=== PATIENT | female | born 1965 | race Caucasian/White ===

== ENCOUNTER 2020-12-08 09:37 | Outpatient (CLI) | payer OTHER, SELFPAY ==
--- NOTE | ~2020-12-08 | MM_ITS ---
EXAMINATION: MM scrn henrique implant BI w alexandru HISTORY: Screening mammogram TECHNIQUE: Craniocaudal and mediolateral oblique 3-D tomosynthesis images with implant displacement a nd synthetic 2-D images were generated. Craniocaudal and mediolateral oblique views of the breasts wi thout implant displacement were obtained using full field digital mammography. CAD analysis was submi tted and interpreted. COMPARISON: Comparison to multiple prior studies sequentially, with oldest reviewed study dated 12/11. BREAST PARENCHYMAL COMPOSITION: There are scattered areas of fibroglandular density. FINDINGS: There are subpectoral saline implants. There is no evidence of suspicious mass, calcificati on, or architectural distortion to suggest malignancy in either breast. There has been no suspicious interval change. IMPRESSION: 1. No mammographic evidence of malignancy. 2. Recommend routine screening mammography in one year. BI-RADS Category 1: Negative Reviewed, dictated and finalized at location A. 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
== END 2020-12-08 09:38 | disposition home or self-care (01) ==
LOC: ANHIMG 09:40
PROVIDERS: PCP Family Medicine; Visit Provider Family Medicine
DX: Z12.31 Encounter for screening mammogram for malignant neoplasm of breast (principal)
CPT/HCPCS: 77063; 77067

== ENCOUNTER → 2021-08-21 11:44 | Outpatient (CLI) | payer OTHER, SELFPAY ==
--- NOTE | ~2021-08-21 | XR_ITS ---
XR abdomen obstructive series DATE: 08/21/2021 13:22 INDICATION: Abdominal pain TECHNIQUE: Supine and standing AP views COMPARISON: None FINDINGS: Patchy interstitial infiltrates are suggested in both lower lung zones. Heart size appears enlarged. No intraperitoneal free air is evident. There is no evidence of bowel obstruction. The psoas shadows are intact. No visceromegaly or significant abnormal calcification is noted. Included skeletal structures are unremarkable. IMPRESSION: Nonspecific abdomen Patchy infiltrates are suggested in the lower lung zones Cardiomegaly Reviewed, dictated and finalized at Location A. Reviewed, dictated and finalized at location B.
== END ==
PROVIDERS: PCP Family Medicine; Visit Provider Family Medicine
DX: R10.9 Unspecified abdominal pain (principal); I51.7 Cardiomegaly
CPT/HCPCS: 74019

== ENCOUNTER 2022-04-17 13:02 | Outpatient (CLI) | payer OTHER, SELFPAY ==
--- NOTE | ~2022-04-17 | CT_ITS ---
EXAMINATION: CT abdomen pelvis wo con DATE: 04/17/2022 13:23 INDICATION: ABD PAIN TECHNIQUE: Computed tomography (CT) of the abdomen and pelvis was performed without intravenous contr ast. Automated exposure control and iterative reconstruction technique were employed. The dose-length product was 269.52 mGy-cm. COMPARISON: None FINDINGS: Lower thorax: Dependent atelectasis. Left basilar scar/atelectasis. Breast augmentation. Liver: Normal. Biliary/Gallbladder: Gallbladder is normal. No bile duct dilation. Pancreas: No mass or duct dilation. Spleen: Normal. Adrenals:No mass. Kidneys: No mass, stone, or hydronephrosis. GI tract: No small or large bowel dilation. Normal appendix. Mesentery/Peritoneum: No ascites, mass, or free air. Retroperitoneum: No mass. Pelvis: Pelvic organs are within normal limits. Soft Tissues: Soft tissues and body wall unremarkable. Bones: No acute osseous finding. Severe degenerative disc disease at L4-5. IMPRESSION: No acute abdominopelvic process. Reviewed, dictated and finalized at location K.
== END 2022-04-17 13:03 | disposition home or self-care (01) ==
PROVIDERS: PCP Family Medicine; Visit Provider Nurse Practitioner
DX: R10.9 Unspecified abdominal pain (principal); R19.4 Change in bowel habit
CPT/HCPCS: 74176

== ENCOUNTER 2022-06-06 00:30 | Day surgery (SDC) | payer OTHER, SELFPAY ==
[2022-05-23 14:25] VITALS: BMI 21.5
--- NOTE | 2022-06-05 14:48 | PM.HPGS ---
History of Present Illness History of Present Illness Consent: Risks, benefits, and alternatives have been discussed and questions answered. Patient agrees to proceed with procedure. Chief complaint: left side abdomen pain, change in bowel habits Narrative: Janiya Downey is a 56 year old female Was had as significant change in her bowel habits. She was noticing pain in the left upper and left lower quadrants with some bloating. Then she got to the point where she could not have a bowel movement. Her stools were hard. She took a complete colonoscopy prep on her own with no results. X-rays were done that showed large amount of stool in her colon. She finally used enemas and milk of magnesia and has gotten her bowels moving. She is currently taking MiraLax every day. There has been no blood in her stools. She did lose about 15 lb for a while but gained most of this back. her last colonoscopy was 5 years ago. Review of Systems Review of Systems: All systems reviewed & are unremarkable except as noted in HPI and below PMFSH Past Medical History Medical History Generalized anxiety disorder Surgical History Surgical History H/O laparoscopy History of breast augmentation History of hysterectomy Family History Family History Father Hypertension Family history of cardiovascular disease Malignant neoplasm of prostate Family history of coronary artery disease Social History Social History Smoking status: Never smoker Second hand tobacco smoke exposure: No Alcohol intake: never Drinks per week: 2 Substance use: never Substance use type: does not use Living arrangements: with family Gender identity (if verbalized by the patient): Female Spiritual care concerns: No Agree to blood products: Yes Meds Home Medications and Allergies Home Medications Medication Instructions Recorded Confirmed Type levothyroxine 75 mcg tablet See Rx Instructions .Route 11/24/21 05/23/22 Rx .COMPLEX #90 tabs estradiol 1 mg tablet 1 mg PO DAILY #90 tabs 02/22/22 05/23/22 Rx Klonopin 1 mg tablet (clonazepam) 1 mg PO TID #90 tabs 05/16/22 05/23/22 Rx Allergies Allergy/AdvReac Type Severity Reaction Status Date / Time cefuroxime Allergy Unknown Nausea Verified 06/06/22 08:44 Penicillins Allergy Unknown rash Verified 06/06/22 08:44 phenytoin Allergy Unknown rash Verified 06/06/22 08:44 Exam Resp: Auscultation: clear to auscultation bilaterally Cardio: Rate: regular rate Rhythm: regular rhythm GI: GI Palp: Yes Soft to palpation and No Tenderness to palpation present (GI) Assessment and Plan Assessment and plan (1) Change in bowel habits: Code(s): R19.4 - Change in bowel habit Status: Acute Assessment and Plan: Colonoscopy with possible biopsy or polypectomy or cautery or injection of substances.
[2022-06-06 08:47] VITALS: BP 109/70; PULSE 102; RESP 20; TEMP 37.1; O2SAT 100
[2022-06-06] MEDS: LACTATED RINGERS 1,000 ML 150 ML IV CONT (08:59)
--- NOTE | 2022-06-06 09:05 | WPDANESEPPF ---
Anes - Initial Pre Proc Eval Procedure: Operation Date: 06/06/22 09:45 Proposed Procedures p Colonoscopy - Mac Bruce MD Date/Time: 06/06/22 09:05 Surgeon: Mac Bruce MD Pre Op Diagnosis: left side abdomen pain, change in bowel habits Patient Data Age: 56 Gender: F Height: 1.63 m Weight: 57 kg Last Vital Signs Temp 37.1 C 06/06/22 08:47 Pulse 102 H 06/06/22 08:47 Resp 20 06/06/22 08:47 BP 109/70 06/06/22 08:47 Pulse Ox 100 06/06/22 08:47 O2 Del Method Room Air 06/06/22 08:47 Allergies Allergy/AdvReac Type Severity Reaction Status Date / Time cefuroxime Allergy Unknown Nausea Verified 06/06/22 08:44 Penicillins Allergy Unknown rash Verified 06/06/22 08:44 phenytoin Allergy Unknown rash Verified 06/06/22 08:44 Home Medications Medication Instructions Recorded Confirmed Type levothyroxine 75 mcg tablet See Rx Instructions .Route 11/24/21 05/23/22 Rx .COMPLEX #90 tabs estradiol 1 mg tablet 1 mg PO DAILY #90 tabs 02/22/22 05/23/22 Rx Klonopin 1 mg tablet (clonazepam) 1 mg PO TID #90 tabs 05/16/22 05/23/22 Rx Patient hx anesthesia problems: none Family hx anesthesia problems: none Results Review: All pre-operative results and documents have been reviewed as part of the pre-operative evaluation. [facility] Past Medical History Medical History Generalized anxiety disorder Surgical History Surgical History H/O laparoscopy History of breast augmentation History of hysterectomy Family History Family History Father Hypertension Family history of cardiovascular disease Malignant neoplasm of prostate Family history of coronary artery disease Social History Social History Smoking status: Never smoker Second hand tobacco smoke exposure: No Alcohol intake: never Drinks per week: 2 Substance use: never Substance use type: does not use Living arrangements: with family Gender identity (if verbalized by the patient): Female Spiritual care concerns: No Agree to blood products: Yes Anes - Eval Final PreProcedure Day of Procedure 06/06/22 09:05 Patient weight: normal Heart: regular rate and rhythm Lungs: clear to auscultation and normal air movement Airway: Mallampati scale class II Neurological: alert and oriented Last oral intake: >/= 8 hours ASA classification: II Emergent: no Anesthetic plan: proceed Anesthesia type and monitoring: general GIVS Results Review: All pre-operative results and documents have been reviewed as part of the pre-operative evaluation. Informed Consent: The patient's anesthetic plan and its attendant risks and benefits were discussed with the patient/family/POA. Questions were solicited and answers provided to the satisfaction of the patient/family/POA.
[2022-06-06 10:05] VITALS: BP 90/58; PULSE 79; RESP 22; O2SAT 100
[2022-06-06 10:15] VITALS: BP 109/79; PULSE 65; RESP 23; O2SAT 100
[2022-06-06 10:25] VITALS: BP 96/67; PULSE 66; RESP 21; O2SAT 99
== END 2022-06-06 10:34 | disposition home or self-care (01) ==
PROVIDERS: PCP Family Medicine; Visit Provider Internal Medicine Gastroenterology
PROC: 0DJD8ZZ Inspection of Lower Intestinal Tract, Via Natural or Artificial Opening Endoscopic (ICD-10-PCS; CPT 45378; principal; 2022-06-06 09:45)
DX: K63.5 Polyp of colon (principal); K63.89 Other specified diseases of intestine; R10.9 Unspecified abdominal pain; E03.9 Hypothyroidism, unspecified; R19.4 Change in bowel habit; F41.1 Generalized anxiety disorder
CPT/HCPCS: 45380; 45385; 88305; J2704; J7120

== ENCOUNTER 2023-07-10 10:02 | Outpatient (CLI) | payer OTHER, SELFPAY ==
--- NOTE | ~2023-07-10 | DEXA_ITS ---
Bone Density Report Name: FERNANDO SOLANO Age: 57 Sex: Female Ethnicity: White Date of : 1965 Indication: osteopenia; height loss; seizure disorder; hysterectomy; Referring Provider: JUAN TUCKER Study: Bone densitometry was performed. Exam Date: July 10, 2023 Accession number: [id number] Bone Density: Region BMD T-score Z-score Classification AP Spine(L1-L4) 0.907 -1.3 0.1 Osteopenia Femoral Neck (Left) 0.593 -2.3 -1.1 Osteopenia Total Hip (Left) 0.691 -2.1 -1.2 Osteopenia Femoral Neck (Right) 0.633 -1.9 -0.7 Osteopenia Total Hip (Right) 0.726 -1.8 -0.9 Osteopenia Total Hip Mean 0.709 -2.0 -1.1 Osteopenia World Health Organization criteria for BMD impression classify patients as: Normal (T-score at or above -1.0), Osteopenia (T-score between -1.0 and -2.5), or Osteoporosis (T-score at or below -2.5). 10-year Fracture Risk(1): Major Osteoporotic Fracture 9.2% Hip Fracture 1.4% Reported Risk Factors: [place] (), Neck BMD=0.593, BMI=21.5 (1) FRAX(R) Version 3.08. Fracture probability calculated for an untreated patient. Fracture probability may be lower if the patient has received treatment. Previous Exams: Region Exam Age BMD T-score BMD Change BMD Change Date g/cm2 vs Baseline vs Previous AP Spine (L1-L4) 07/10/2023 57 0.907 -1.3 -0.078 (-7.9%) -0.034 (-3.6%) 06/02/2015 49 0.940 -1.0 -0.044 (-4.5%) -0.044 (-4.5%) 12/11/2012 47 0.985 -0.6 Total Hip(Left) 07/10/2023 57 0.691 -2.1 -0.107 (-13.4% -0.054 (-7.3%) 06/02/2015 49 0.746 -1.6 -0.053 (-6.6%) -0.053 (-6.6%) 12/11/2012 47 0.799 -1.2 Total Hip(Right) 07/10/2023 57 0.726 -1.8 -0.081 (-10.0% -0.062 (-7.8%) 06/02/2015 49 0.788 -1.3 -0.019 (-2.4%) -0.019 (-2.4%) 12/11/2012 47 0.807 -1.1 *Denotes significance at 95% confidence level, LSC for AP Spine = 0.022 g/cm2, LSC for Total Hip = 0.027 g/cm2 # Denotes dissimilar scan types or analysis methods Clinical Information Provided by Patient: Has the following medical conditions: Any Seizure Disorders, Hysterectomy Patient maximum height was 65 Menopause Age: 35 Drinks caffeinated beverages Onset of menses at age 13 Number of children 2 Impression: The patient has low bone mass, based on the Left Femoral Neck T-score. The patient has an estimated ten-year risk of hip fracture of 1.4% and an estimated ten-year risk of major fracture of 9.2%, based
--- NOTE | ~2023-07-10 | MM_ITS ---
EXAMINATION: MM scrn henrique implant BI w alexandru HISTORY: Screening mammogram TECHNIQUE: Craniocaudal and mediolateral oblique 3-D tomosynthesis images with implant displacement a nd synthetic 2-D images were generated. Craniocaudal and mediolateral oblique views of the breasts wi thout implant displacement were obtained using full field digital mammography. CAD analysis was submi tted and interpreted. COMPARISON: 12/08/2020, 05/31/2017, 06/02/2015 BREAST PARENCHYMAL COMPOSITION: There are scattered areas of fibroglandular density. FINDINGS: There is no evidence of suspicious mass, calcification, or architectural distortion to sugg est malignancy in either breast. There has been no suspicious interval change. IMPRESSION: 1. No mammographic evidence of malignancy. 2. Recommend routine screening mammography in one year. BI-RADS Category 1: Negative Reviewed, dictated and finalized at location A.
== END 2023-07-10 10:03 | disposition home or self-care (01) ==
LOC: ANHIMG 10:03
PROVIDERS: PCP Family Medicine; Visit Provider Family Medicine
DX: Z12.31 Encounter for screening mammogram for malignant neoplasm of breast (principal); Z78.0 Asymptomatic menopausal state; M85.88 Other specified disorders of bone density and structure, other site; M85.852 Other specified disorders of bone density and structure, left thigh; M85.851 Other specified disorders of bone density and structure, right thigh
CPT/HCPCS: 77063; 77067; 77080

== ENCOUNTER 2025-06-28 14:33 | Outpatient (CLI) | payer OTHER, SELFPAY ==
--- NOTE | ~2025-06-28 | MM_ITS ---
EXAMINATION: MM scrn henrique implant BI w alexandru HISTORY: Screening mammogram TECHNIQUE: Craniocaudal and mediolateral oblique 3-D tomosynthesis images with implant displacement a nd synthetic 2-D images were generated. Craniocaudal and mediolateral oblique views of the breasts wi thout implant displacement were obtained using full field digital mammography. CAD analysis was submi tted and interpreted. COMPARISON: 07/10/2023 BREAST PARENCHYMAL COMPOSITION: There are scattered areas of fibroglandular density. FINDINGS: There is no evidence of suspicious mass, calcification, or architectural distortion to sugg est malignancy in either breast. There has been no suspicious interval change. IMPRESSION: No mammographic evidence of malignancy. Recommend routine screening mammography in one year. BI-RADS Category 1: Negative Reviewed, dictated and finalized at [facility].
--- OUTSIDE RECORDS SUMMARY | 2025-06-28 15:37 | XMS_ITS | Encounter Summary ---
Author Organization [facility] Address [address] [place] [address] Care Team Providers Care Ripening Room Operator Name Role Phone Joseph Perera MD Primary Care Provider +1- [phone] Encounter Details Date Type Department Care Team (Late st Contact Info) Description 05/29/1999 Outpatient Historical [facility] WORKFORCE PLANNER - Medical [facility] [id number] [place] [address] Ananth Hernandez MD [id number] [place] [address] Social History Tobacco Use Types Packs/Day Years Used Date Smoking Tobacco: Never Assessed Comments Unknown Sex and Gender Information Value Date Recorded Sex Assigned at Not on file Legal Sex Female 4:34 AM LEGISLATIVE ASSISTANT Gender Identity Not on file Sexual Orientation Not on file documented as of this encounter Plan of Treatment Not on file documented as of this encounter Visit Diagnoses Not on filedocumented in this encounter Care Teams Ripening Room Operator Relationship Specialty Start Date End Date Joseph Perera MD [address] [place] [address] [address] [place] [address] PCP - General 02/16/03 documented as of this encounter
--- OUTSIDE RECORDS SUMMARY | 2025-06-28 15:37 | XMS_ITS | Encounter Summary ---
Author Organization [facility] Address [address] [place] [address] Care Team Providers Care Wind Turbine Service Technician Name Role Phone Joseph Perera MD Primary Care Provider +1- [phone] Encounter Details Date Type Department Care Team (Late st Contact Info) Description 08/17/2002 Outpatient Historical [facility] INDUSTRIAL RELATIONS DIRECTOR - [address] [place] [address] Ananth Hernandez MD [address] [facility] [address] [address] Social History Tobacco Use Types Packs/Day Years Used Date Smoking Tobacco: Never Assessed Comments Unknown Sex and Gender Information Value Date Recorded Sex Assigned at Not on file Legal Sex Female 4:34 AM WHARF TENDER Gender Identity Not on file Sexual Orientation Not on file documented as of this encounter Plan of Treatment Not on file documented as of this encounter Visit Diagnoses Not on filedocumented in this encounter Care Teams Wind Turbine Service Technician Relationship Specialty Start Date End Date Joseph Perera MD [address] [place] [address] [address] [place] [address] PCP - General 02/16/03 documented as of this encounter
--- OUTSIDE RECORDS SUMMARY | 2025-06-28 15:37 | XMS_ITS | Clinical Summary ---
Author Organization [facility] [address] [facility] Address [address] [place] [address] Care Team Providers Care Supervisor Heavy Equipment Name Role Phone Joseph Perera MD Primary Care Provider +1 -[phone] Allergies Active Allergy Reactions Criticality Noted Date Comments Phenytoin Rash Medium 06/07/2021 Penicillins Rash Medium 06/07/2021 Medications Prolensa 0.07 % drops 04/24/2021 Active KlonoPIN 1 mg tablet 03/22/2021 Active estradioL (ESTRACE) 1 mg tablet 05/29/2021 Active Synthroid 75 mcg tablet 05/29/2021 Active Active Problems No known active problems Surgical History Surgery Date Site/Laterality Comments EYE SURGERY 05/19/2021 Left Refractive lens replacement HYSTERECTOMY TUMOR REMOVAL Medical History Medical History Date Comments Thyroid disease Epilepsy (HCC) Endometriosis Family History Medical History Relation Name Comments Colon cancer Father Relation Name Status Comments Father Social History Tobacco Use Types Packs/Day Years Used Date Smoking Tobacco: Never Smokeless Tobacco: Never Personal Safety Answer Date Recorded Getting School Help Needed Not on file 01/23 Comments Unknown Sex and Gender Information Value Date Recorded Sex Assigned at Not on file Legal Sex Female 5:29 PM GRANULIZING MACHINE OPERATOR Gender Identity Not on file Sexual Orientation Not on file Obstetrics History Last Filed Vital Signs Vital Sign Reading Time Taken Comments Blood Pressure 108/78 06/07/2021 5:21 PM CDT Pulse 52 06/07/2021 5:21 PM CDT Temperature 36.7 C (98.1 F) 06/07/2021 5:21 PM CDT Respiratory Rate 15 06/07/2021 5:21 PM CDT Oxygen Saturation 98% 06/07/2021 5:21 PM CDT Inhaled Oxygen Concentration - - Weight 58.2 kg (128 lb 3.2 oz) 06/07/2021 5:21 P M CDT Height 162.6 cm (5' 4) 06/07/2021 5:21 PM CDT Body Mass Index 22.01 06/07/2021 5:21 PM CDT Plan of Treatment Not on file Insurance [facility] H[facility]/PPO Address: [facility] [id number] [place] [id number] Care Teams Supervisor Heavy Equipment Relationship Specialty Start Date End Date Joseph Perera MD PCP - General Family Medicine 06/07/21
--- OUTSIDE RECORDS SUMMARY | 2025-06-28 15:37 | XMS_ITS | Encounter Summary ---
Author Organization [facility] Address [address] [place] [address] Care Team Providers Care Bumper Operator Name Role Phone Joseph Perera MD Primary Care Provider +1- [phone] Encounter Details Date Type Department Care Team (Late st Contact Info) Description 05/19/2001 Outpatient Historical [facility] GAME AND FISH PROTECTOR - Medical [place] [facility] [address] [facility] [address] [address] Ángel Montgomery MD [address] [place] [address] Social History Tobacco Use Types Packs/Day Years Used Date Smoking Tobacco: Never Assessed Comments Unknown Sex and Gender Information Value Date Recorded Sex Assigned at Not on file Legal Sex Female 4:34 AM ASSISTANT BRANCH OPERATIONS MANAGER Gender Identity Not on file Sexual Orientation Not on file documented as of this encounter Plan of Treatment Not on file documented as of this encounter Visit Diagnoses Not on filedocumented in this encounter Care Teams Bumper Operator Relationship Specialty Start Date End Date Joseph Perera MD [address] [facility] [address] [place] [address] PCP - General 02/16/03 documented as of this encounter
--- OUTSIDE RECORDS SUMMARY | 2025-06-28 15:37 | XMS_ITS | Encounter Summary ---
Author Organization [facility] Address [address] [place] [address] Care Team Providers Care End Lathe Operator Name Role Phone Joseph Perera MD Primary Care Provider +1- [phone] Encounter Details Date Type Department Care Team (Late st Contact Info) Description 07/29/2000 Outpatient Historical [facility] MANAGER QA - Medical [facility] [id number] [place] [address] Ananth Hernandez MD [id number] [place] [address] Social History Tobacco Use Types Packs/Day Years Used Date Smoking Tobacco: Never Assessed Comments Unknown Sex and Gender Information Value Date Recorded Sex Assigned at Not on file Legal Sex Female 4:34 AM FRONT DESK PERSON Gender Identity Not on file Sexual Orientation Not on file documented as of this encounter Plan of Treatment Not on file documented as of this encounter Visit Diagnoses Not on filedocumented in this encounter Care Teams End Lathe Operator Relationship Specialty Start Date End Date Joseph Perera MD [address] [place] [address] [address] [place] [address] PCP - General 02/16/03 documented as of this encounter
--- OUTSIDE RECORDS SUMMARY | 2025-06-28 15:37 | XMS_ITS | Encounter Summary ---
Author Organization [facility] Address [address] [place] [address] Care Team Providers Care Rail Bonder Name Role Phone Joseph Perera MD Primary Care Provider +1- [phone] Encounter Details Date Type Department Care Team (Late st Contact Info) Description 06/26/1999 Outpatient Historical [facility] APARTMENT MAINTENANCE MANAGER - Medical [facility] [id number] [place] [address] Ananth Hernandez MD [id number] [place] [address] Social History Tobacco Use Types Packs/Day Years Used Date Smoking Tobacco: Never Assessed Comments Unknown Sex and Gender Information Value Date Recorded Sex Assigned at Not on file Legal Sex Female 4:34 AM CRYSTAL GROWER Gender Identity Not on file Sexual Orientation Not on file documented as of this encounter Plan of Treatment Not on file documented as of this encounter Visit Diagnoses Not on filedocumented in this encounter Care Teams Rail Bonder Relationship Specialty Start Date End Date Joseph Perera MD [address] [place] [address] [address] [place] [address] PCP - General 02/16/03 documented as of this encounter
--- OUTSIDE RECORDS SUMMARY | 2025-06-28 15:37 | XMS_ITS | Encounter Summary ---
Author Organization [facility] Address [address] [place] [address] Care Team Providers Care Lube Man Name Role Phone Joseph Perera MD Primary Care Provider +1- [phone] Encounter Details Date Type Department Care Team (Late st Contact Info) Description 07/21/1999 Outpatient Historical [facility] LINING STUFFER - Medical [facility] [id number] [place] [address] Ananth Hernandez MD [id number] [place] [address] Social History Tobacco Use Types Packs/Day Years Used Date Smoking Tobacco: Never Assessed Comments Unknown Sex and Gender Information Value Date Recorded Sex Assigned at Not on file Legal Sex Female 4:34 AM NET APPLICATIONS DEVELOPER Gender Identity Not on file Sexual Orientation Not on file documented as of this encounter Plan of Treatment Not on file documented as of this encounter Visit Diagnoses Not on filedocumented in this encounter Care Teams Lube Man Relationship Specialty Start Date End Date Joseph Perera MD [address] [place] [address] [address] [place] [address] PCP - General 02/16/03 documented as of this encounter
--- OUTSIDE RECORDS SUMMARY | 2025-06-28 15:37 | XMS_ITS | Encounter Summary ---
Author Organization [facility] Address [address] [place] [address] Care Team Providers Care Inside Upholsterer Name Role Phone Joseph Perera MD Primary Care Provider +1- [phone] Encounter Details Date Type Department Care Team (Late st Contact Info) Description 04/16/2002 Outpatient Historical [facility] LINING PARTS SEWER - Medical [place] [facility] [address] [facility] [address] [address] Ángel Montgomery MD [address] [place] [address] Social History Tobacco Use Types Packs/Day Years Used Date Smoking Tobacco: Never Assessed Comments Unknown Sex and Gender Information Value Date Recorded Sex Assigned at Not on file Legal Sex Female 4:34 AM SUPERINTENDENT SERVICE Gender Identity Not on file Sexual Orientation Not on file documented as of this encounter Plan of Treatment Not on file documented as of this encounter Visit Diagnoses Not on filedocumented in this encounter Care Teams Inside Upholsterer Relationship Specialty Start Date End Date Joesph Perera MD [facility] [address] [place] [address] PCP - General 02/16/03 documented as of this encounter
--- OUTSIDE RECORDS SUMMARY | 2025-06-28 15:37 | XMS_ITS | Encounter Summary ---
Author Organization [facility] Address [address] [place] [address] Care Team Providers Care Lehr Attendant Name Role Phone Joseph Perera MD Primary Care Provider +1- [phone] Encounter Details Date Type Department Care Team (Late st Contact Info) Description 07/24/1999 Outpatient Historical [facility] CHEST PAINTING AND SEALING SUPERVISOR - Medical [facility] [id number] [place] [address] Ananth Hernandez MD [id number] [place] [address] Social History Tobacco Use Types Packs/Day Years Used Date Smoking Tobacco: Never Assessed Comments Unknown Sex and Gender Information Value Date Recorded Sex Assigned at Not on file Legal Sex Female 4:34 AM TRACE CLERK Gender Identity Not on file Sexual Orientation Not on file documented as of this encounter Plan of Treatment Not on file documented as of this encounter Visit Diagnoses Not on filedocumented in this encounter Care Teams Lehr Attendant Relationship Specialty Start Date End Date Joseph Perera MD [address] [place] [address] [address] [place] [address] PCP - General 02/16/03 documented as of this encounter
--- OUTSIDE RECORDS SUMMARY | 2025-06-28 15:37 | XMS_ITS | Encounter Summary ---
Author Organization [facility] Address [address] [place] [address] Care Team Providers Care Discharge Coordinator Name Role Phone Joseph Perera MD Primary Care Provider +1- [phone] Encounter Details Date Type Department Care Team (Late st Contact Info) Description 08/13/2001 Outpatient Historical [facility] FARM TECHNICIAN - Medical [facility] [id number] [place] [address] Ananth Hernandez MD [id number] [place] [address] Social History Tobacco Use Types Packs/Day Years Used Date Smoking Tobacco: Never Assessed Comments Unknown Sex and Gender Information Value Date Recorded Sex Assigned at Not on file 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
--- OUTSIDE RECORDS SUMMARY | 2025-06-28 15:38 | XMS_ITS | Encounter Summary ---
Author Organization [facility] Address [address] [place] [address] Care Team Providers Care Rotary Drier Name Role Phone Joseph Perera MD Primary Care Provider +1- [phone] Encounter Details Date Type Department Care Team (Late st Contact Info) Description 11/20/1999 Outpatient Historical [facility] MERCHANDISING DIRECTOR - Medical [facility] [id number] [place] [address] Ananth Hernandez MD [id number] [place] [address] Social History Tobacco Use Types Packs/Day Years Used Date Smoking Tobacco: Never Assessed Comments Unknown Sex and Gender Information Value Date Recorded Sex Assigned at Not on file 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
--- OUTSIDE RECORDS SUMMARY | 2025-06-28 15:38 | XMS_ITS | Encounter Summary ---
Author Organization [facility] Address [address] [place] [address] Care Team Providers Care Agricultural Education Professor Name Role Phone Joseph Perera MD Primary Care Provider +1- [phone] Encounter Details Date Type Department Care Team (Late st Contact Info) Description 11/01/1999 Outpatient Historical [facility] AGRICULTURAL SERVICES DIRECTOR - Medical [facility] [address] [place] [address] Ananth Hernandez MD [id number] [place] [address] Social History Tobacco Use Types Packs/Day Years Used Date Smoking Tobacco: Never Assessed Comments Unknown Sex and Gender Information Value Date Recorded Sex Assigned at Not on file 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
--- OUTSIDE RECORDS SUMMARY | 2025-06-28 15:38 | XMS_ITS | Encounter Summary ---
Author Organization [facility] Address [address] [place] [address] Care Team Providers Care Rail Express Clerk Name Role Phone Joseph Perera MD Primary Care Provider +1- [phone] Encounter Details Date Type Department Care Team (Latest Contact Info) Description 06/28/2003 Outpatient Historical [facility] THONY Sommer, Madeline Irwin MD [address] [facility] [address] [place] [address] ABDOMINAL PAIN LLQ (Primary Dx) Social History Tobacco Use Types Packs/Day Years Used Date Smoking Tobacco: Never Assessed Comments Unknown Sex and Gender Information Value Date Recorded Sex Assigned at Not on file 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
--- OUTSIDE RECORDS SUMMARY | 2025-06-28 15:38 | XMS_ITS | Encounter Summary ---
Author Organization [facility] Address 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
--- OUTSIDE RECORDS SUMMARY | 2025-06-28 15:38 | XMS_ITS | Encounter Summary ---
Author Organization [facility] Address [address] [place] [address] Care Team Providers Care Banbury Mixer Operator Name Role Phone Joseph Perera MD Primary Care Provider +1- [phone] Encounter Details Date Type Department Care Team (Late st Contact Info) Description 08/21/1999 Outpatient Historical [facility] RUNNER ON - Medical 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
--- OUTSIDE RECORDS SUMMARY | 2025-06-28 15:38 | XMS_ITS | Encounter Summary ---
Author Organization [facility] Address [address] [place] [address] Care Team Providers Care Planogrammer Name Role Phone Joseph Perera MD Primary Care Provider +1- [phone] Encounter Details Date Type Department Care Team (Latest Contact Info) Description 11/21/1999 Inpatient Historical [facility] PATIENT IN A BED Ananth Hernandez MD [address] [facility] [address] [address] Unspecified indication for care or intervention related to labor and delivery, delivered (Primary Dx) Social History Tobacco Use Types Packs/Day Years Used Date Smoking Tobacco: Never Assessed Comments Unknown Sex and Gender Information Value Date Recorded Sex Assigned at Not on file Legal Sex Female 4:34 AM COMPLIANCE MANAGER Gender Identity Not on file Sexual Orientation Not on file documented as of this encounter Plan of Treatment Not on file documented as of this encounter Visit Diagnoses Diagnosis Unspecified indication for care or intervention related to labor and delivery, delivered- Primary documented in this encounter Care Teams Planogrammer Relationship Specialty Start Date End Date Joseph Perera MD [address] [place] [address] 200 [place] [address] PCP - General 02/16/03 documented as of this encounter
--- OUTSIDE RECORDS SUMMARY | 2025-06-28 15:38 | XMS_ITS | Encounter Summary ---
Author Organization [facility] Address [address] [place] [address] Care Team Providers Care Advanced Manufacturing Consultant Name Role Phone Joseph Perera MD Primary Care Provider +1- [phone] Encounter Details Date Type Department Care Team (Late st Contact Info) Description 11/21/1999 Outpatient Historical [facility] AUTOMOTIVE PRODUCT SPECIALIST - Medical [facility] [id number] [place] [address] Ananth Hernandez MD [id number] [place] [address] Social History Tobacco Use Types Packs/Day Years Used Date Smoking Tobacco: Never Assessed Comments Unknown Sex and Gender Information Value Date Recorded Sex Assigned at Not on file 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
--- OUTSIDE RECORDS SUMMARY | 2025-06-28 15:38 | XMS_ITS | Encounter Summary ---
Author Organization [facility] Address [address] [place] [address] Care Team Providers Care Forest And Conservation Worker Name Role Phone Joseph Perera MD Primary Care Provider +1- [phone] Encounter Details Date Type Department Care Team (Late st Contact Info) Description 01/08/2000 Outpatient Historical [facility] ABRASIVE MIXER - Medical [facility] [address] [place] [address] Ananth Hernandez MD [id number] [place] [address] Social History Tobacco Use Types Packs/Day Years Used Date Smoking Tobacco: Never Assessed Comments Unknown Sex and Gender Information Value Date Recorded Sex Assigned at Not on file Legal Sex Female 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
--- OUTSIDE RECORDS SUMMARY | 2025-06-28 15:38 | XMS_ITS | Encounter Summary ---
Author Organization [facility] Address [address] [place] [address] Care Team Providers Care Measuring Machine Operator Name Role Phone Joseph Perera MD Primary Care Provider +1- [phone] Encounter Details Date Type Department Care Team (Late st Contact Info) Description 09/20/1999 Outpatient Historical [facility] SOLIDWORKS DESIGNER - Medical [facility] [id number] [place] [address] Ananth Hernandez MD [address] [place] [address] Social History Tobacco Use Types Packs/Day Years Used Date Smoking Tobacco: Never Assessed Comments Unknown Sex and Gender Information Value Date Recorded Sex Assigned at Not on file Legal Sex Female 4:34 AM CAPACITY PLANNER Gender Identity Not on file Sexual Orientation Not on file documented as of this encounter Plan of Treatment Not on file documented as of this encounter Visit Diagnoses Not on filedocumented in this encounter Care Teams Measuring Machine Operator Relationship Specialty Start Date End Date Joseph Perera MD [address] [place] [address] 200 [place] [address] PCP - General 02/16/03 documented as of this encounter
--- OUTSIDE RECORDS SUMMARY | 2025-06-28 15:38 | XMS_ITS | Clinical Summary ---
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 Gender Identity Not on file Sexual Orientation Not on file Plan of Treatment Health Maintenance Due Date Last Done Comments DTAP/TDAP/TD VACCINES (1 - Tdap) 1983 HPV/Cotest (21-29) 1985 CERVICAL CANCER SCREENING 1994 HPV/Cotest (30-65) 1994 PAP SMEAR 1994 BREAST CANCER SCREENING 2004 COLORECTAL SCREENING 2009 Colorectal Cancer Screening 2009 FIT-DNA Q 3 years 2009 FIT/FOBT Q 1 year 2009 Flex Sig/CT Colonography Q 5 years 2009 ZOSTER VACCINE (1 of 2) 2014 INFLUENZA VACCINE (#1) 2025 RSV VACCINE (60+ or ) (1 - 1-dose 75+ series) 2039 HEPATITIS B VACCINES Aged Out No long er eligible based on patient's age to complete this topic Care Teams Consulting Hr Professional Relationship Specialty Start Date End Date Joseph Perera MD [address] [place] [address] PCP - General 02/16/03
--- OUTSIDE RECORDS SUMMARY | 2025-06-28 15:38 | XMS_ITS | Encounter Summary ---
Author Organization [facility] Address [address] [facility] Attn: [place] [address] Care Team Providers Care Parts Order And Stock Clerk Name Role Phone Joseph Perera MD Primary Care Provider +1- [phone] Encounter Details Date Type Department Care Team (Late st Contact Info) Description 09/16/1995 Outpatient Historical Ananth Hernandez MD [address] [facility] [address] [address] Social History Tobacco Use Types Packs/Day Years Used Date Smoking Tobacco: Never Assessed Comments Unknown Sex and Gender Information Value Date Recorded Sex Assigned at Not on file 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
--- OUTSIDE RECORDS SUMMARY | 2025-06-28 15:38 | XMS_ITS | Encounter Summary ---
Author Organization [facility] Address [address] [place] [address] Care Team Providers Care Recycling Operator Name Role Phone Joseph Perera MD Primary Care Provider +1- [phone] Encounter Details Date Type Department Care Team (Late st Contact Info) Description 04/17/1999 Outpatient Historical [facility] COMPRESSOR ENGINEER - Medical [facility] [id number] [place] [address] Ananth Hernandez MD [address] [place] [address] Social History Tobacco Use Types Packs/Day Years Used Date Smoking Tobacco: Never Assessed Comments Unknown Sex and Gender Information Value Date Recorded Sex Assigned at Not on file Legal Sex Female 4:34 AM RECRUITING INTERN Gender Identity Not on file Sexual Orientation Not on file documented as of this encounter Plan of Treatment Not on file documented as of this encounter Visit Diagnoses Not on filedocumented in this encounter Care Teams Recycling Operator Relationship Specialty Start Date End Date Joseph Perera MD [address] [place] [address] 200 [place] [address] PCP - General 02/16/03 documented as of this encounter
--- OUTSIDE RECORDS SUMMARY | 2025-06-28 15:38 | XMS_ITS | Encounter Summary ---
Author Organization [facility] Address [address] [place] [address] Care Team Providers Care Auto Washer Name Role Phone Joseph Perera MD Primary Care Provider +1- [phone] Encounter Details Date Type Department Care Team (Late st Contact Info) Description 10/18/1999 Outpatient Historical [facility] KINESIOLOGY INTERNSHIP - Medical [facility] [id number] [place] [address] Ananth Hernandez MD [id number] [place] [address] Social History Tobacco Use Types Packs/Day Years Used Date Smoking Tobacco: Never Assessed Comments Unknown Sex and Gender Information Value Date Recorded Sex Assigned at Not on file Legal Sex Female 4:34 AM PULMONARY DISEASE SPECIALIST Gender Identity Not on file Sexual Orientation Not on file documented as of this encounter Plan of Treatment Not on file documented as of this encounter Visit Diagnoses Not on filedocumented in this encounter Care Teams Auto Washer Relationship Specialty Start Date End Date Joseph Perera MD [address] [place] [address] 200 [place] [address] PCP - General 02/16/03 documented as of this encounter
--- OUTSIDE RECORDS SUMMARY | 2025-06-28 15:38 | XMS_ITS | Encounter Summary ---
Author Organization [facility] Address [address] [place] [address] Care Team Providers Care Lay Out Helper Name Role Phone Joseph Perera MD Primary Care Provider +1- [phone] Encounter Details Date Type Department Care Team (Late st Contact Info) Description 11/15/1999 Outpatient Historical [facility] LOGGING WORKER - Medical [facility] [id number] [place] [address] Ananth Hernandez MD [id number] [place] [address] Social History Tobacco Use Types Packs/Day Years Used Date Smoking Tobacco: Never Assessed Comments Unknown Sex and Gender Information Value Date Recorded Sex Assigned at Not on file Legal Sex Female 4:34 AM 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
== END 2025-06-28 14:34 | disposition home or self-care (01) ==
PROVIDERS: PCP Family Medicine; Visit Provider Family Medicine
DX: Z12.31 Encounter for screening mammogram for malignant neoplasm of breast (principal); Z98.82 Breast implant status
CPT/HCPCS: 77063; 77067

== ENCOUNTER 2025-08-13 13:44 | Outpatient (CLI) | payer OTHER, SELFPAY ==
--- NOTE | ~2025-08-13 | DEXA_ITS ---
Bone Density Report Name: FERNANDO SOLANO Age: 60 Sex: Female Ethnicity: White Date of : 1965 Indication: osteopenia; parental hip fracture; seizure disorder; hysterectomy; Referring Provider: JUAN TUCKER Study: Bone densitometry was performed. Exam Date: August 13, 2025 Accession number: [id number] Bone Density: Region BMD T-score Z-score Classification AP Spine(L1-L4) 0.956 -0.8 0.7 Normal Femoral Neck (Left) 0.610 -2.2 -0.8 Osteopenia Total Hip (Left) 0.670 -2.2 -1.2 Osteopenia Femoral Neck (Right) 0.628 -2.0 -0.7 Osteopenia Total Hip (Right) 0.700 -2.0 -1.0 Osteopenia Total Hip Mean 0.685 -2.1 -1.1 Osteopenia World Health Organization criteria for BMD impression classify patients as: Normal (T-score at or above -1.0), Osteopenia (T-score between -1.0 and -2.5), or Osteoporosis (T-score at or below -2.5). 10-year Fracture Risk(1): Major Osteoporotic Fracture 19% Hip Fracture 1.5% Reported Risk Factors: [place] (), Neck BMD=0.610, BMI=23.0, parental fracture (1) FRAX(R) Version 3.08. Fracture probability calculated for an untreated patient. Fracture probability may be lower if the patient has received treatment. Previous Exams: -- Region Exam Age BMD T-score BMD Change BMD Change Date g/cm2 vs Baseline vs Previous -- AP Spine (L1-L4) 08/13/2025 60 0.956 -0.8 5.5%* 5.5%* 07/10/2023 57 0.907 -1.3 Total Hip(Left) 08/13/2025 60 0.670 -2.2 -3.2% -3.2% 07/10/2023 57 0.691 -2.1 Total Hip(Right) 08/13/2025 60 0.700 -2.0 -3.7% -3.7% 07/10/2023 57 0.726 -1.8 -- *Denotes significance at 95% confidence level, LSC for AP Spine = 0.022 g/cm2, LSC for Total Hip = 0.027 g/cm2 Clinical Information Provided by Patient: Parent has had a hip fracture Has used the following medications: HRT (i.e. estrogen/hormone therapy) Has the following medical conditions: Any Seizure Disorders, Hysterectomy, klonopin Patient maximum height was 64 Menopause Age: 35 Drinks caffeinated beverages Onset of menses at age 12 Number of children 2 Impression: The patient has low bone mass, based on the Left Total Hip T-score. The patient has an estimated ten-year risk of hip fracture of 1.5% and an estimated ten-year risk of major fracture of 19%, based on the WHO FRAX algorithm. The patient has risk factors, including: parental hip fracture. No significant bone loss was observed. Discussion: BONE DENSITY IS LOW AT ONE OR MORE SKELETAL SITES. This patient's lowest T-score is low at one or more skeletal sites. It meets the World Health Organization's (WHO) criteria for ?low bone mass? (T-score between -1.0 and -2.5). The patient's 10-year risk of fracture as calculated by FRAX is less than the threshold where pharmacological therapy is recommended by the National Osteoporosis Foundation (NOF). However, all treatment decisions require clinical judgment and consideration of individual patient factors, including patient preferences, comorbidities, previous drug use, risk factors not captured in the FRAX model (e.g., frailty, falls, vitamin D deficiency, increased bone turnover, interval significant decline in bone density) and possible under or overestimation of fracture risk by FRAX. The patient should follow a healthful lifestyle (good nutrition with adequate calcium and vitamin D, and appropriate weight-bearing exercise). Follow-Up: Consider repeating this study in 2 to 3 years to reassess this patient's status, or sooner if there is some new clinical indication. Reported by: CODEY on 08/13/2025 2:08:00 PM. Reviewed, dictated and finalized at location A.
== END 2025-08-13 13:45 | disposition home or self-care (01) ==
LOC: MICIMG 13:44
PROVIDERS: PCP Family Medicine; Visit Provider Family Medicine
DX: M85.89 Other specified disorders of bone density and structure, multiple sites (principal); Z78.0 Asymptomatic menopausal state
CPT/HCPCS: 77080